=== PATIENT | male | born 1965 | race Caucasian/White ===

== ENCOUNTER 2016-04-29 11:40 | Emergency (ER) | payer OTHER ==
[~2016-04-29] VITALS: Ht 180.3 cm; Wt 93.0 kg
[2016-04-29 12:20] VITALS: BP 157/105
[2016-04-29] MEDS ORDERED: SILVER SULFADIAZINE 1 % TOPICAL CREAM 50GM TOP ONE ×3 (12:45)
== END 2016-04-29 13:15 | disposition home or self-care (01) ==
LOC: ER 11:44
DX: T23.201D Burn of second degree of right hand, unspecified site, subsequent encounter (principal); T23.202D Burn of second degree of left hand, unspecified site, subsequent encounter; T20.20XD Burn of second degree of head, face, and neck, unspecified site, subsequent encounter; F12.10 Cannabis abuse, uncomplicated
CPT/HCPCS: 16000